=== PATIENT | male | born 1965 | race Caucasian/White ===

== ENCOUNTER 2019-02-01 11:56 | Emergency (ER) | payer OTHER ==
[~2019-02-01] VITALS: Ht 182.9 cm; Wt 102.1 kg
[2019-02-01 11:59] VITALS: Ht 182.9 cm; Wt 102.1 kg
[2019-02-01 13:42] VITALS: BP 125/81
== END 2019-02-01 13:42 | disposition home or self-care (01) ==
LOC: ED 11:56
DX: J20.9 Acute bronchitis, unspecified (principal); Z88.4 Allergy status to anesthetic agent